=== PATIENT | female | born 1965 | race Caucasian/White ===

== ENCOUNTER → 2018-09-29 | Outpatient (CLI) | payer BC ==
[~2018-09-29] VITALS: Ht 170.2 cm; Wt 93.0 kg
[~2018-09-29] MED LIST: ADENOSINE 78 MG in GIVE UN-DILUTED 0 ML IV ONE; ADENOSINE 90 MG/30 ML INJ IV ONE; ESOM40CA39 PO; ESTR0.5T3 PO; FENO54TA4 PO; FOLI1TAB51 PO; FURO40TA4 PO; LEVO100T8 PO
== END | disposition home or self-care (01) ==
LOC: Rad HDHVI 12:18
PROVIDERS: ATTEND Internal Medicine Cardiovascular Disease
DX: R07.89 Other chest pain (principal); E78.5 Hyperlipidemia, unspecified; M06.9 Rheumatoid arthritis, unspecified
CPT/HCPCS: 78452; 93005; 96374; 96375; A9500; J0153

== ENCOUNTER → 2018-10-21 | Outpatient (CLI) | payer BC ==
[~2018-10-21] MED LIST changes: -ADENOSINE 78 MG in GIVE UN-DILUTED 0 ML IV ONE; -ADENOSINE 90 MG/30 ML INJ IV ONE
== END | disposition home or self-care (01) ==
LOC: Rad HDHVI 12:01
PROVIDERS: ATTEND Internal Medicine Cardiovascular Disease
DX: I82.419 Acute embolism and thrombosis of unspecified femoral vein (principal)
CPT/HCPCS: 93971

== ENCOUNTER → 2018-10-22 | Outpatient (CLI) | payer BC ==
[~2018-10-22] MED LIST changes: +LEVOFLOXACIN 500MG 100 ML IV ONE; +LEVOFLOXACIN 500MG 100 ML IV SCH
[2018-10-22 13:15] VITALS: BP 134/82
--- NOTE | 2018-10-22 13:15 | NUR ---
IN FOR PAIN AND SWELLING TO RIGHT HAND AND WRIST. TENDER TO TOUCH. SWOLLEN. PT IS ALTERNATING ICE AND HEAT FOR PAIN RELIEF. CLINIC PROVIDER CONSULTED AND ORDERS RECIEVED. PLAN FOR IV LEVAQUIN AFTER AUTHORIZATION RECIEVED.
--- NOTE | 2018-10-22 14:00 | NUR ---
IV insertion IV access obtained, via clean sterile technique by inserting 24 gauge catheter at after attempt(s). IV secured properly. No trauma to site. Patient tolerated procedure well.
--- NOTE | 2018-10-22 14:00 | NUR ---
IV INFUSION STARTED.
--- NOTE | 2018-10-22 14:30 | NUR ---
RIGHT FOREARM IV SITE BENIGN.IV INFUSION STILL IN PROGRESS, TOLERATING WELL.
[2018-10-22 15:04] VITALS: BP 129/81
--- NOTE | 2018-10-22 15:04 | NUR ---
CHF INFUSION COMPLETED AND IV SITE DCD AND SITE BENIGN POST INFUSION. TOLERATED WELL. DISCHARGED TO SELF CARE IN NO DISTRESS. MEDICATION ADMINISTRATION LEVAQUIN IV START AT 1400/STOP 1500 RX FOR HOME LEVAQUIN 500 MG PO DAILY X 5 DAYS
== END | disposition home or self-care (01) ==
LOC: CHF HDHVI 13:34
PROVIDERS: ATTEND Internal Medicine Cardiovascular Disease
DX: M25.431 Effusion, right wrist (principal); E78.5 Hyperlipidemia, unspecified; I82.419 Acute embolism and thrombosis of unspecified femoral vein
CPT/HCPCS: 96365; G0463; J1956

== ENCOUNTER → 2019-07-22 | Day surgery (SDC) | payer BC ==
[2019-07-20 12:01] LABS: Basophils # (auto) 0.1 10 ^3/uL (0-0.2); Basophils % (auto) 1.1 % (0.0-2.0); Eosinophils # (auto) 0 10 ^3/uL (0-0.8); Eosinophils % (auto) 0.9 % (0.0-7.0); Hematocrit 39.8 % (36.0-46.0); Hemoglobin 13.5 g/dL (12.2-16.2); Lymphocytes # (auto) 1.4 10 ^3/uL (0.4-5.4); Lymphocytes % (auto) 28.7 % (10.0-50.0); Mean Corpuscular Hemoglobin 30.3 pg (28.0-32.0); Mean Corpuscular Hgb Conc. 33.9 g/dL (32.0-36.0); Mean Corpuscular Volume 89.5 fL (80.0-100.0); Monocytes # (auto) 0.4 10 ^3/uL (0-1.3); Monocytes % (auto) 7.5 % (0.0-12.0); Neutrophils % (auto) 61.8 % (37.0-80.0); Nucleated Red Blood Cells % 0.1 %; Platelet Count (auto) 203 10^3/uL (140-450); Red Blood Cells 4.45 10^6/uL (4.0-5.20); Red Cell Distribution Width 13.4 % (11.8-14.3); Urine Bacteria FEW /hpf (None Seen); Urine Blood Negative /uL (Negative); Urine Specific Gravity 1.013 (1.001-1.035); Urine WBC 2 /hpf (0 - 5); White Blood Cell 4.9 10^3/uL (4.4-10.8)
[2019-07-20 12:15] LABS: INR 0.97 (0.9-1.15); Partial Thromboplastin Time 24.2 sec (23.64-32.05)
[2019-07-20 12:20] LABS: Albumin 4.3 g/dL (3.4-5.0); Calcium 9.2 mg/dL (8.5-10.1); Potassium 3.7 mmol/L (3.5-5.1)
[2019-07-20 12:26] LABS: Bilirubin, Total 0.6 mg/dL (0.2-1.0); Total Protein 7.9 g/dL (6.4-8.2)
[~2019-07-22] VITALS: Ht 170.2 cm; Wt 87.5 kg
[~2019-07-22] MED LIST changes: +BIOT10CA PO; +CELE100C82 PO; +CYAN1TAB14 PO; +DexAMETHasone SOD PHOS 10MG/1ML VIAL INJ ONE; +ERGO1CAP6 PO; -ESOM40CA39 PO; +FENO48TA12 PO; -FENO54TA4 PO; -FOLI1TAB51 PO; +LEFL20TA PO; -LEVOFLOXACIN 500MG 100 ML IV ONE; -LEVOFLOXACIN 500MG 100 ML IV SCH; +MEPERIDINE HCL (25 MG/ML) 1ML VIAL ONE; +MIDAZOLAM HCL 1MG/1ML-2 ML VIAL ONE; +NEOMYCIN-BACITRACIN-POLYM 15GM TOP OINT TOP ONE; +PROPOFOL 10 MG/ML 20 ML IV ONE; +RIT50I IV; +ROPIVACAINE 0.5% (5MG/ML) 20ML AMPULE IJ ONE; +ceFAZolin 1GM/50ML 50 ML IV ONE; +fentaNYL CITRATE 100 MCG/2 ML VL ONE
[2019-07-22 11:28] VITALS: BP 165/94
== END | disposition home or self-care (01) ==
LOC: SUR 08:05
PROVIDERS: ATTEND Podiatrist Foot & Ankle Surgery
DX: R22.9 Localized swelling, mass and lump, unspecified (principal); B07.0 Plantar wart; M19.90 Unspecified osteoarthritis, unspecified site; E07.9 Disorder of thyroid, unspecified; Z90.710 Acquired absence of both cervix and uterus; Z79.899 Other long term (current) drug therapy; Z85.038 Personal history of other malignant neoplasm of large intestine; Z11.59 Encounter for screening for other viral diseases
CPT/HCPCS: 11421; 28043; 36415; 80053; 81001; 85025; 85610; 85730; 88305; 88342; J0690; J1100; J2175; J2250; J2704; J2795; J3010; U0003

== ENCOUNTER → 2020-04-04 | Outpatient (CLI) | payer BC, OTHER ==
[~2020-04-04] MED LIST changes: -DexAMETHasone SOD PHOS 10MG/1ML VIAL INJ ONE; +ERGO1CAP12 PO; -ERGO1CAP6 PO; -MEPERIDINE HCL (25 MG/ML) 1ML VIAL ONE; -MIDAZOLAM HCL 1MG/1ML-2 ML VIAL ONE; -NEOMYCIN-BACITRACIN-POLYM 15GM TOP OINT TOP ONE; -PROPOFOL 10 MG/ML 20 ML IV ONE; -ROPIVACAINE 0.5% (5MG/ML) 20ML AMPULE IJ ONE; -ceFAZolin 1GM/50ML 50 ML IV ONE; -fentaNYL CITRATE 100 MCG/2 ML VL ONE
== END | disposition home or self-care (01) ==
LOC: LAB 13:28
PROVIDERS: ATTEND Podiatrist Foot & Ankle Surgery
DX: L82.1 Other seborrheic keratosis (principal); B07.9 Viral wart, unspecified

== ENCOUNTER → 2020-06-01 | Outpatient (CLI) | payer BC ==
[2020-06-01 11:56] LABS: Potassium 3.9 mmol/L (3.5-5.1)
[2020-06-01 12:15] LABS: BUN/Creatinine Ratio 13.4; Bilirubin, Total 0.4 mg/dL (0.2-1.0); Calcium 9.3 mg/dL (8.5-10.1); Total Protein 7.3 g/dL (6.4-8.2)
== END | disposition home or self-care (01) ==
LOC: LAB 10:13
PROVIDERS: ATTEND Internal Medicine
DX: I10 Essential (primary) hypertension (principal); E78.00 Pure hypercholesterolemia, unspecified; E03.9 Hypothyroidism, unspecified
CPT/HCPCS: 36415; 80053; 80061; 84439; 84443

== ENCOUNTER → 2022-11-28 | Outpatient (CLI) | payer BC ==
[~2022-11-28] VITALS: Ht 170.2 cm; Wt 84.4 kg
[~2022-11-28] MED LIST changes: +ADENOSINE 71 MG in GIVE UN-DILUTED 0 ML IV ONE; +ADENOSINE 90 MG/30 ML INJ IV ONE; -ESTR0.5T3 PO; +ESTR0.5T6 PO; -FENO48TA12 PO; +FENO48TA13 PO
== END | disposition home or self-care (01) ==
LOC: Rad HDHVI 14:01
PROVIDERS: ATTEND Internal Medicine Cardiovascular Disease
DX: I82.621 Acute embolism and thrombosis of deep veins of right upper extremity (principal); E78.5 Hyperlipidemia, unspecified; R00.2 Palpitations; E78.00 Pure hypercholesterolemia, unspecified; I10 Essential (primary) hypertension; Z82.49 Family history of ischemic heart disease and other diseases of the circulatory system; Z88.8 Allergy status to other drugs, medicaments and biological substances
CPT/HCPCS: 78452; 93005; 96374; 96375; A9500; J0153

== ENCOUNTER 2023-03-24 15:27 | Inpatient (IN) | payer BC ==
[~2023-03-24] VITALS: Ht 170.2 cm; Wt 97.9 kg
[~2023-03-24 15:27] MED LIST changes: -ADENOSINE 71 MG in GIVE UN-DILUTED 0 ML IV ONE; -ADENOSINE 90 MG/30 ML INJ IV ONE
[2023-03-24] MEDS ORDERED: AZIT-43 PO (15:46)
[2023-03-24] MEDS ORDERED: RIV20T PO (15:46)
[2023-03-24] MEDS ORDERED: LEFL1TAB3 PO (15:46)
[2023-03-24] MEDS ORDERED: PRED20TA2 PO (15:46)
[2023-03-24] MEDS ORDERED: PENI500T2 PO (15:46)
[2023-03-24] MEDS ORDERED: OSEL75CA17 PO (15:46)
[2023-03-24 15:47] VITALS: O2SAT 95
[2023-03-24 16:00] VITALS: RESP 16; O2SAT 95
[2023-03-24] MEDS ORDERED: CHOL25CH3 PO (16:18)
[2023-03-24] MEDS ORDERED: PYRI1TAB3 PO (16:18)
[2023-03-24 16:21] VITALS: RESP 16; TEMP 98; O2SAT 95
[2023-03-24] MEDS ORDERED: DICL1GEL73 TD (16:41)
[2023-03-24 16:51] LABS: Basophils # (auto) 0 10 ^3/uL (0-0.2); Basophils % (auto) 0.2 % (0.0-2.0); Eosinophils # (auto) 0 10 ^3/uL (0-0.8); Hematocrit 35.6 % (36.0-46.0); Hemoglobin 11.9 g/dL (12.2-16.2); Lymphocytes # (auto) 0.6 10 ^3/uL (0.4-5.4); Lymphocytes % (auto) 7.1 % (10.0-50.0); Mean Corpuscular Hemoglobin 29.1 pg (28.0-32.0); Mean Corpuscular Hgb Conc. 33.4 g/dL (32.0-36.0); Mean Corpuscular Volume 87.1 fL (80.0-100.0); Monocytes # (auto) 0.3 10 ^3/uL (0-1.3); Monocytes % (auto) 3.6 % (0.0-12.0); Neutrophils # (auto) 7.2 10 ^3/uL (1.6-8.6); Neutrophils % (auto) 89.1 % (37.0-80.0); Red Blood Cells 4.09 10^6/uL (4.0-5.20); Red Cell Distribution Width 13.4 % (11.8-14.3); White Blood Cell 8.1 10^3/uL (4.4-10.8)
[2023-03-24 17:00] VITALS: BP 142/85; PULSE 80; RESP 20; TEMP 99.2; O2SAT 95
[2023-03-24 17:02] LABS: Chloride 109 mmol/L (98-107); Sodium 139 mmol/L (136-145)
[2023-03-24 17:03] LABS: Anion Gap 7 (5-15); Carbon Dioxide 23 mmol/L (20-30)
[2023-03-24 17:06] LABS: INR 0.99 (0.9-1.15); Partial Thromboplastin Time 26.5 SEC (24.5-34.5); Prothrombin Time 10.4 sec (9.3-11.8)
[2023-03-24 17:08] LABS: BUN/Creatinine Ratio 14.3 (10.0-20.0); Blood Urea Nitrogen 13 mg/dL (9-23); Glucose 125 mg/dL (74-106)
[2023-03-24] MEDS ORDERED: IOHEXOL 350 MG/ML 100ML IJ ONE (18:33)
[2023-03-24 22:00] VITALS: BP 158/68; PULSE 71; RESP 18; TEMP 99; O2SAT 96
[2023-03-24] MEDS ORDERED: AZITHROMYCIN 500MG/ 250ML 250 ML IV ONE (22:00)
[2023-03-24] MEDS ORDERED: ENOXAPARIN SOD 80 MG/0.8ML SYRINGE SC SCH (22:00)
[2023-03-24] MEDS: ENOXAPARIN SOD 60 MG/0.6 ML SYRINGE SC SCH (22:41)
[2023-03-24] MEDS: methylPREDNISolone SOD SUCC 40 MG/ML VL IV SCH (22:42)
[2023-03-25] VITALS (12 sets, daily range): BP systolic 137–169; BP diastolic 69–90; PULSE 71–103; RESP 16–20; TEMP 98–103; O2SAT 95–98
[2023-03-25] MEDS: ENOXAPARIN SOD 60 MG/0.6 ML SYRINGE SC SCH ×2 (10:51→22:33)
[2023-03-25] MEDS: methylPREDNISolone SOD SUCC 40 MG/ML VL IV SCH ×2 (10:51→22:31)
[2023-03-25 10:59] LABS: Hepatitis B Surface Antigen Negative (Negative)
[2023-03-25 12:12] LABS: Hepatitis C Antibody Negative (Negative)
[2023-03-25] MEDS: hydrALAZINE HCL 20 MG/ML VL IV PRN ×2 (13:28→22:28)
[2023-03-25] MEDS: IPRATROPIUM BROM 0.5 MG/2.5ML INH SOL NEB SCH (19:24)
[2023-03-25] MEDS: AZITHROMYCIN 500MG/ 250ML 250 ML IV SCH (22:31)
[2023-03-26] VITALS (14 sets, daily range): BP systolic 140–150; BP diastolic 53–94; PULSE 70–96; RESP 16–20; TEMP 98.5–100.5; O2SAT 95–100
[2023-03-26] MEDS: IPRATROPIUM BROM 0.5 MG/2.5ML INH SOL NEB SCH ×4 (00:24→18:23)
[2023-03-26] MEDS: ACETAMINOPHEN 325 MG TAB PO PRN ×3 (00:47→23:14)
[2023-03-26] MEDS: PIPERACILLIN-TAZO 4.5GM 100 ML IV SCH ×3 (06:00→21:37)
[2023-03-26] MEDS: LEVOTHYROXINE SODIUM 100 MCG TAB PO SCH (06:27)
[2023-03-26] MEDS: methylPREDNISolone SOD SUCC 40 MG/ML VL IV SCH ×2 (07:54→09:08)
[2023-03-26] MEDS: RIVAROXABAN 20 MG TAB PO SCH ×2 (09:08→10:00)
[2023-03-26] MEDS: ENOXAPARIN SOD 60 MG/0.6 ML SYRINGE SC SCH ×2 (09:09→21:30)
[2023-03-26] MEDS ORDERED: Leflunomide 20 MG PO SCH (10:00)
[2023-03-26 14:20] LABS: Hematocrit 37.8 % (36.0-46.0); Hemoglobin 12.4 g/dL (12.2-16.2); Mean Corpuscular Hemoglobin 28.7 pg (28.0-32.0); Mean Corpuscular Hgb Conc. 32.9 g/dL (32.0-36.0); Mean Corpuscular Volume 87.2 fL (80.0-100.0); Red Blood Cells 4.33 10^6/uL (4.0-5.20); Red Cell Distribution Width 13.4 % (11.8-14.3); White Blood Cell 8.1 10^3/uL (4.4-10.8)
[2023-03-26 14:24] LABS: Basophils % (manual) 0 (0.0-2.0); Blast Cells 0; Eosinophils % (manual) 0 (0-7); Metamyelocytes % 0; Myelocytes % 0; Promyelocytes % 0; Reactive Lymphocytes 0
[2023-03-26 14:40] LABS: Alanine Aminotransferase 13 U/L (7-40); Albumin 4.3 g/dL (3.2-4.8); Alkaline Phosphatase 62 U/L (46-116); Anion Gap 6 (5-15); Aspartate Aminotransferase 27 U/L (13-40); BUN/Creatinine Ratio 15.4 (10.0-20.0); Bilirubin, Total 0.5 mg/dL (0.2-1.0); Blood Urea Nitrogen 12 mg/dL (9-23); Calcium 9.6 mg/dL (8.5-10.1); Carbon Dioxide 24 mmol/L (20-30); Chloride 107 mmol/L (98-107); Glucose 103 mg/dL (74-106); Sodium 137 mmol/L (136-145); Total Protein 6.8 g/dL (5.7-8.2)
[2023-03-26 14:46] LABS: Band Neutrophils % (manual) 8; Lymphocytes % (manual) 4 (10.0-50.0); Monocytes % (manual) 2 (0-12); Platelet Estimate Adequate
[2023-03-26] MEDS: Leflunomide 20 MG PO SCH (20:17)
[2023-03-26] MEDS: AZITHROMYCIN 500MG/ 250ML 250 ML IV SCH (21:31)
[2023-03-27] VITALS (14 sets, daily range): BP systolic 114–155; BP diastolic 69–88; PULSE 74–104; RESP 17–20; TEMP 98.5–102.6; O2SAT 92–100
[2023-03-27] MEDS: ALPRAZolam 0.25 MG TAB PO PRN (00:39)
[2023-03-27] MEDS: LEVOTHYROXINE SODIUM 100 MCG TAB PO SCH (06:08)
[2023-03-27] MEDS: PIPERACILLIN-TAZO 4.5GM 100 ML IV SCH ×3 (06:09→21:42)
[2023-03-27] MEDS: hydrALAZINE HCL 20 MG/ML VL IV PRN (06:10)
[2023-03-27] MEDS: ACETAMINOPHEN 325 MG TAB PO PRN (06:17)
[2023-03-27] MEDS: IPRATROPIUM BROM 0.5 MG/2.5ML INH SOL NEB SCH ×5 (06:49→23:54)
[2023-03-27] MEDS: ENOXAPARIN SOD 60 MG/0.6 ML SYRINGE SC SCH (08:25)
[2023-03-27] MEDS: Leflunomide 20 MG PO SCH (09:02)
[2023-03-27] MEDS: methylPREDNISolone SOD SUCC 40 MG/ML VL IV SCH (09:02)
[2023-03-27] MEDS: RIVAROXABAN 20 MG TAB PO SCH (09:02)
[2023-03-27] MEDS: AZITHROMYCIN 500MG/ 250ML 250 ML IV SCH (21:42)
[2023-03-28] VITALS (12 sets, daily range): BP systolic 111–144; BP diastolic 65–79; PULSE 64–85; RESP 16–20; TEMP 97.9–102.5; O2SAT 93–99
[2023-03-28] MEDS: LEVOTHYROXINE SODIUM 100 MCG TAB PO SCH (06:07)
[2023-03-28] MEDS: PIPERACILLIN-TAZO 4.5GM 100 ML IV SCH ×3 (06:07→23:39)
[2023-03-28] MEDS: IPRATROPIUM BROM 0.5 MG/2.5ML INH SOL NEB SCH ×3 (07:07→17:58)
[2023-03-28] MEDS ORDERED: IOHEXOL 300 MG/ML 100ML BOTTLE IJ ONE (08:08)
[2023-03-28] MEDS: methylPREDNISolone SOD SUCC 40 MG/ML VL IV SCH (11:18)
[2023-03-28] MEDS: Leflunomide 20 MG PO SCH (14:15)
[2023-03-28] MEDS: ACETAMINOPHEN 325 MG TAB PO PRN (14:15)
[2023-03-28] MEDS: RIVAROXABAN 20 MG TAB PO SCH (14:15)
[2023-03-28] MEDS ORDERED: VANCOMYCIN PER PHARMACY 0 MG IV SCH (16:30)
[2023-03-28] MEDS: VANCOMYCIN 1GM/200ML 200 ML IV SCH (18:23)
[2023-03-28] MEDS: AZITHROMYCIN 500MG/ 250ML 250 ML IV SCH (21:32)
[2023-03-29] VITALS (16 sets, daily range): BP systolic 102–163; BP diastolic 72–86; PULSE 67–86; RESP 16–20; TEMP 98.3–102.6; O2SAT 92–97
[2023-03-29] MEDS: IPRATROPIUM BROM 0.5 MG/2.5ML INH SOL NEB SCH ×4 (00:18→18:37)
[2023-03-29] MEDS: VANCOMYCIN 1GM/200ML 200 ML IV SCH ×2 (05:49→18:55)
[2023-03-29] MEDS: PIPERACILLIN-TAZO 4.5GM 100 ML IV SCH ×3 (06:52→18:57)
[2023-03-29] MEDS: LEVOTHYROXINE SODIUM 100 MCG TAB PO SCH (06:54)
[2023-03-29] MEDS: methylPREDNISolone SOD SUCC 40 MG/ML VL IV SCH (10:01)
[2023-03-29] MEDS: Leflunomide 20 MG PO SCH (10:09)
[2023-03-29] MEDS: ACETAMINOPHEN 325 MG TAB PO PRN ×2 (12:23→22:00)
[2023-03-29] MEDS: RIVAROXABAN 20 MG TAB PO SCH (19:03)
[2023-03-29] MEDS: AZITHROMYCIN 500MG/ 250ML 250 ML IV SCH (21:53)
[2023-03-29] MEDS: ALPRAZolam 0.25 MG TAB PO PRN (21:57)
[2023-03-30] VITALS (16 sets, daily range): BP systolic 131–167; BP diastolic 74–90; PULSE 67–97; RESP 12–18; TEMP 97.8–102.8; O2SAT 92–100
[2023-03-30] MEDS: PIPERACILLIN-TAZO 4.5GM 100 ML IV SCH ×3 (00:10→16:42)
[2023-03-30] MEDS: IPRATROPIUM BROM 0.5 MG/2.5ML INH SOL NEB SCH ×4 (00:33→18:38)
[2023-03-30] MEDS: VANCOMYCIN 1GM/200ML 200 ML IV SCH ×2 (06:32→15:26)
[2023-03-30] MEDS: LEVOTHYROXINE SODIUM 100 MCG TAB PO SCH (06:32)
[2023-03-30] MEDS: methylPREDNISolone SOD SUCC 40 MG/ML VL IV SCH (09:25)
[2023-03-30] MEDS: Leflunomide 20 MG PO SCH (09:26)
[2023-03-30] MEDS: ACETAMINOPHEN 325 MG TAB PO PRN ×2 (09:48→21:43)
[2023-03-30] MEDS: RIVAROXABAN 20 MG TAB PO SCH (16:41)
[2023-03-30] MEDS: AZITHROMYCIN 500MG/ 250ML 250 ML IV SCH (21:43)
[2023-03-30] MEDS: ALPRAZolam 0.25 MG TAB PO PRN (23:08)
[2023-03-31] VITALS (16 sets, daily range): BP systolic 113–169; BP diastolic 53–91; PULSE 71–103; RESP 16–20; TEMP 98.3–103.2; O2SAT 89–100
[2023-03-31] MEDS: IPRATROPIUM BROM 0.5 MG/2.5ML INH SOL NEB SCH ×4 (00:17→18:00)
[2023-03-31] MEDS: VANCOMYCIN 1GM/200ML 200 ML IV SCH ×3 (01:07→21:23)
[2023-03-31] MEDS: PIPERACILLIN-TAZO 4.5GM 100 ML IV SCH ×3 (02:22→17:04)
[2023-03-31] MEDS: LEVOTHYROXINE SODIUM 100 MCG TAB PO SCH (05:44)
[2023-03-31] MEDS: ACETAMINOPHEN 325 MG TAB PO PRN ×3 (05:45→22:47)
[2023-03-31] MEDS: hydrALAZINE HCL 20 MG/ML VL IV PRN ×2 (05:47→22:47)
[2023-03-31] MEDS: methylPREDNISolone SOD SUCC 40 MG/ML VL IV SCH (08:58)
[2023-03-31] MEDS: Leflunomide 20 MG PO SCH (10:00)
[2023-03-31] MEDS: RIVAROXABAN 20 MG TAB PO SCH (17:03)
[2023-03-31] MEDS: AZITHROMYCIN 500MG/ 250ML 250 ML IV SCH (22:46)
[2023-03-31] MEDS: ALPRAZolam 0.25 MG TAB PO PRN (23:02)
[2023-04-01] VITALS (9 sets, daily range): BP systolic 114–138; BP diastolic 42–78; PULSE 68–111; RESP 16–18; TEMP 97.5–103; O2SAT 92–100
[2023-04-01] MEDS: IPRATROPIUM BROM 0.5 MG/2.5ML INH SOL NEB SCH ×3 (00:03→11:22)
[2023-04-01] MEDS: PIPERACILLIN-TAZO 4.5GM 100 ML IV SCH ×2 (01:03→11:09)
[2023-04-01] MEDS: ACETAMINOPHEN 325 MG TAB PO PRN ×2 (06:00→12:25)
[2023-04-01] MEDS: LEVOTHYROXINE SODIUM 100 MCG TAB PO SCH (06:00)
[2023-04-01] MEDS: VANCOMYCIN 1GM/200ML 200 ML IV SCH (08:30)
[2023-04-01] MEDS: Leflunomide 20 MG PO SCH (11:08)
[2023-04-01] MEDS: methylPREDNISolone SOD SUCC 40 MG/ML VL IV SCH (11:08)
[2023-04-01] MEDS: hydrALAZINE HCL 20 MG/ML VL IV PRN (12:26)
[2023-04-01 14:13] LABS: Basophils # (auto) 0 10 ^3/uL (0-0.2); Basophils % (auto) 0.1 % (0.0-2.0); Eosinophils # (auto) 0 10 ^3/uL (0-0.8); Eosinophils % (auto) 0.1 % (0.0-7.0); Hematocrit 34.3 % (36.0-46.0); Hemoglobin 11.3 g/dL (12.2-16.2); Lymphocytes # (auto) 0.2 10 ^3/uL (0.4-5.4); Lymphocytes % (auto) 3.2 % (10.0-50.0); Mean Corpuscular Hemoglobin 28.5 pg (28.0-32.0); Mean Corpuscular Hgb Conc. 32.9 g/dL (32.0-36.0); Mean Corpuscular Volume 86.7 fL (80.0-100.0); Monocytes # (auto) 0.1 10 ^3/uL (0-1.3); Monocytes % (auto) 2.1 % (0.0-12.0); Neutrophils % (auto) 94.5 % (37.0-80.0); Red Blood Cells 3.95 10^6/uL (4.0-5.20); Red Cell Distribution Width 13.3 % (11.8-14.3); White Blood Cell 6.3 10^3/uL (4.4-10.8)
[2023-04-01 14:30] LABS: Alanine Aminotransferase 21 U/L (7-40); Alkaline Phosphatase 45 U/L (46-116); Anion Gap 7 (5-15); Aspartate Aminotransferase 50 U/L (13-40); BUN/Creatinine Ratio 12.5 (10.0-20.0); Blood Urea Nitrogen 9 mg/dL (9-23); Calcium 8.5 mg/dL (8.5-10.1); Carbon Dioxide 21 mmol/L (20-30); Chloride 105 mmol/L (98-107); Glucose 127 mg/dL (74-106); Potassium 3.6 mmol/L (3.5-5.1); Sodium 133 mmol/L (136-145)
[2023-04-01 14:31] LABS: Albumin 3.5 g/dL (3.2-4.8); Bilirubin, Total 0.5 mg/dL (0.2-1.0); Total Protein 5.6 g/dL (5.7-8.2)
[2023-04-01 14:57] LABS: Base Excess -3.2 mmol/L (-2.0-2.0)
[2023-04-01] MEDS ORDERED: PIPERACILLIN-TAZOB 3.375GM 100 ML IV SCH (17:00)
== END 2023-04-01 18:40 | disposition home or self-care (01) | DRG 177 ==
LOC: EAST 15:40
PROVIDERS: ADMIT Internal Medicine Cardiovascular Disease; ATTEND Internal Medicine Cardiovascular Disease
DX: U07.1 COVID-19 (principal); J12.82 Pneumonia due to coronavirus disease 2019; I48.91 Unspecified atrial fibrillation; R06.00 Dyspnea, unspecified; E78.5 Hyperlipidemia, unspecified; I10 Essential (primary) hypertension; Z82.49 Family history of ischemic heart disease and other diseases of the circulatory system
CPT/HCPCS: 36415; 36600; 71045; 71260; 71275; 74177; 80048; 80053; 80202; 82565; 82805; 83880; 85007; 85025; 85027; 85610; 85730; 86803; 87340; 94640; G0378; J2543

== ENCOUNTER → 2023-05-13 | Outpatient (CLI) | payer BC ==
[~2023-05-13] MED LIST changes: +CHOL25CH3 PO; +DICL1GEL73 TD; -ERGO1CAP12 PO; -ESTR0.5T6 PO; +LEFL1TAB3 PO; -LEFL20TA PO; +PYRI1TAB3 PO; +RIV20T PO
== END | disposition home or self-care (01) ==
LOC: RT 12:54
PROVIDERS: ATTEND Internal Medicine Cardiovascular Disease
DX: J84.10 Pulmonary fibrosis, unspecified (principal); R94.4 Abnormal results of kidney function studies
CPT/HCPCS: 36415; 36600; 82565; 82805; 84520

== ENCOUNTER → 2023-05-20 | Outpatient (CLI) | payer BC ==
[~2023-05-20] MED LIST changes: +IOHEXOL 350 MG/ML 100ML IJ ONE
[2023-05-20 10:14] VITALS: BP 169/91; PULSE 66; RESP 18; O2SAT 100
[2023-05-20 11:15] VITALS: BP 161/83; PULSE 63; RESP 18; O2SAT 99
== END | disposition home or self-care (01) ==
LOC: Rad HDHVI 09:50
PROVIDERS: ATTEND Internal Medicine Cardiovascular Disease
DX: R06.02 Shortness of breath (principal); J84.178 Other interstitial pulmonary diseases with fibrosis in diseases classified elsewhere; K80.20 Calculus of gallbladder without cholecystitis without obstruction
CPT/HCPCS: 71260; G0463; Q9967

== ENCOUNTER → 2023-10-01 | Outpatient (CLI) | payer BC ==
[~2023-10-01] MED LIST changes: -IOHEXOL 350 MG/ML 100ML IJ ONE
== END | disposition home or self-care (01) ==
LOC: Rad HDHVI 11:01
PROVIDERS: ATTEND Internal Medicine Cardiovascular Disease
DX: R06.02 Shortness of breath (principal)
CPT/HCPCS: 71046